=== PATIENT | female | born 1975 | race Caucasian/White ===

== ENCOUNTER → 2017-06-16 | Outpatient (CLI) | payer OTHER ==
[~2017-06-16] MED LIST: AMO500 PO; AMOX-559 PO; ASPI-1471 PO; ASPI-715 PO; ASPI-757 PO; ATR80PT PO; AZIT-9 PO; CAR3.125 PO; CEP500 PO; CEPH-13 PO; CEPH250C37 PO; CHOL400C10 PO; CLOP75TA43 PO; CYCL10TA29 PO; DICL100G39 TOP; DOC100 PO; FAM20 PO; FAMO20TA28 PO; FENO134C5 PO; FLUT16SP20 NS; GLY5 PO; HYDR-385 PO; HYDR-389 PO; HYDR-4309 PO; IBU600 PO; IBU800 PO; IBUP-1455 PO; IBUP600T22 PO; INUL2TAB7 PO; ISOS30TA54 PO; KET10 PO; LEVI SQ; LEVI SUBQ; LISI2.5T60 PO; LOR5 PO; LOR5/325 PO; METF-410 PO; METF-420 PO; METO25TA93 PO; MULT-1335 PO; NIA500 PO; NIAC100T35 PO; NICO1PAT45 TD; NIT4 SL; NO MEDS; NOVOLINRPT IJ; NPH,100V12 SQ; ONDA4TAB9 PO; PAR20 PO; PARO-46 PO; PENI-22 PO; PER PO; PHENA200 PO; PNEI IM; PRA20 PO; PRAS10TA PO; PRAS10TA4 PO; PRAV40TA77 PO; PRAV40TA78 PO; PRE5 PO; PREN-67 PO; PROM-100 PO; SIMV10TA98 PO; SITA100T9 PO; SULF-198 PO; TICA90TA PO; TRAM-420 PO; UNKNOWN ANTIBIOTIC
[2017-06-16 08:32] LABS: PLATELET COUNT, AUTOMATED 471 K/uL (150-450)
== END ==
LOC: LAB 08:10
PROVIDERS: ATTEND Nurse Practitioner Family
DX: E11.65 Type 2 diabetes mellitus with hyperglycemia (principal); E78.00 Pure hypercholesterolemia, unspecified
CPT/HCPCS: 36415; 82040; 82247; 82310; 82374; 82435; 82565; 82947; 83036; 84075; 84132; 84155; 84295; 84443; 84450; 84460; 84520; 85025

== ENCOUNTER 2017-07-29 14:38 | Emergency (ER) | payer OTHER ==
[~2017-07-29] VITALS: Ht 152.4 cm; Wt 88.5 kg
--- NOTE | 2017-07-29 14:45 | ER Report ---
History and Physical Time Seen By MD: 14:45 Hx. of Stated Complaint: has felt weak like her bs are low since 0800 HPI/ROS weak headache low grade fever today , type 2 dm , feels like sugars are low although they are high Allergies: Coded Allergies: No Known Drug Allergies (Unverified , 07/29/17) Home Meds Active Scripts Amoxicillin/Pot Clav 875-125 Mg Tab (AUGMENTIN 875-125 TABLET) 1 Each Tablet, 1 TAB PO Q12H, #20 TAB Prov:LAN DELGADO APRN-C 07/29/17 Famotidine (PEPCID) 20 Mg Tablet, 20 MG PO QDAY, #30 TAB Prov:ROSELIA CHRISTIAN MD 03/24/17 Clopidogrel Bisulfate (PLAVIX) 75 Mg Tablet, 1 TAB PO QDAY, #90 TAB 0 Refills Prov:LAN KELLY APRN DISK AND TAPE MACHINE TENDER-C 01/07/17 Reported Medications Nph, Human Insulin Isophane (NOVOLIN N) 100 Unit/1 Ml Vial, 30 UNIT SQ, VIAL 07/29/17 Aspirin (ASPIRIN) 325 Mg Tablet, 325 MG PO QDAY, TAB 07/29/17 Discontinued Reported Medications Aspirin (ASPIR 81) 81 Mg Tablet.dr, 1 TAB PO QDAY, TAB 07/19/15 Discontinued Scripts Metformin Hcl (METFORMIN HCL) 500 Mg Tablet, 2 TAB PO BID, #360 TAB 3 Refills Prov:LAN KELLY APRN DISK AND TAPE MACHINE TENDER-C 07/14/17 Metoprolol Tartrate (METOPROLOL TARTRATE) 25 Mg Tablet, 0.5 TAB PO BID, #90 TAB 3 Refills Prov:DAVON INGRAM MD 06/13/16 Atorvastatin (LIPITOR) 80 Mg Tab, 1 TAB PO QHS, #90 TAB 3 Refills Prov:DAVON INGRAM MD 06/13/16 Past Medical/Surgical History type2 diabetic , htn, , stents x 3 Hx Smoking: Yes (1 PPD) Smoking Status: Current: Every Day Smoker Exposure to Second Hand Smoke?: Yes Hx Substance Use Disorder: No Hx Alcohol Use: Yes (RARE) Constitutional Vital Sign - Last 24 Hours 07/29/17 07/29/17 07/29/17 07/29/17 14:44 14:51 15:00 15:08 Temp 98.0 Pulse 78 79 Resp 20 B/P (MAP) 139/81 (100) 139/81 124/83 (97) Pulse Ox 96 98 O2 Delivery Room Air 07/29/17 07/29/17 07/29/17 07/29/17 15:19 15:30 15:38 16:00 Pulse 77 B/P (MAP) 123/80 (94) 122/76 (91) 112/78 (89) Pulse Ox 96 07/29/17 07/29/17 07/29/17 07/29/17 16:05 16:30 16:35 17:28 Pulse 68 69 B/P (MAP) 120/71 (87) 127/79 (95) Pulse Ox 94 Intake and Output 07/29/17 07/29/17 07/30/17 15:00 23:00 07:00 Intake Total 400 ml Balance 400 ml Physical Exam alert mild distress, beatris gcs 15 eom intact, tm non reddened, sinus mild pain freddie maxiallary , neck supple no jvd, hrr, lungs cta, abd soft, bs x 4 duncan Medical Decision Making Data Points Result Diagram: 07/29/17 1457 07/29/17 1457 Laboratory Hematology Test 07/29/17 14:55 07/29/17 14:57 07/29/17 15:15 Whole Blood Glucose 241 mg/DL (75-110) Red Blood Count 5.67 M/uL (4.17-5.56) Mean Corpuscular Volume 80.6 fL (80.0-96.0) Mean Corpuscular Hemoglobin 27.0 pg (26.0-33.0) Mean Corpuscular Hemoglobin Concent 33.6 g/dL (32.0-36.0) Red Cell Distribution Width 14.6 % (11.5-14.5) Mean Platelet Volume 6.6 fL (7.2-11.1) Neutrophils (%) (Auto) 61.6 % (39.4-72.5) Lymphocytes (%) (Auto) 29.7 % (17.6-49.6) Monocytes (%) (Auto) 5.8 % (4.1-12.4) Eosinophils (%) (Auto) 1.8 % (0.4-6.7) Basophils (%) (Auto) 1.1 % (0.3-1.4) Nucleated RBC Relative Count (auto) 0.0 /100WBC Neutrophils # (Auto) 9.0 K/uL (2.0-7.4) Lymphocytes # (Auto) 4.3 K/uL (1.3-3.6) Monocytes # (Auto) 0.9 K/uL (0.3-1.0) Eosinophils # (Auto) 0.3 K/uL (0.0-0.5) Basophils # (Auto) 0.2 K/uL (0.0-0.1) Nucleated RBC Absolute Count (auto) 0.00 K/uL Sodium Level 132 mmol/L (137-145) Potassium Level 3.6 mmol/L (3.5-5.0) Chloride Level 100 mmol/L (98-107) Carbon Dioxide Level 22 mmol/L (22-31) Blood Urea Nitrogen 14 mg/dl (7-18) Creatinine 0.80 mg/dl (0.52-1.04) Glomerular Filtration Rate Calc > 60.0 Random Glucose 233 mg/dl (75-110) Calcium Level 9.0 mg/dl (8.4-10.2) Total Bilirubin 0.4 mg/dl (0.2-1.3) Aspartate Amino Transf (AST/SGOT) 22 U/L (0-35) Alanine Aminotransferase (ALT/SGPT) 42 U/L (0-56) Alkaline Phosphatase 134 U/L (0-126) Troponin I < 0.012 ng/ml C-Reactive Protein < 0.5 mg/dl (<1.0) Total Protein 7.5 gm/dl (6.3-8.2) Albumin 4.0 g/dl (3.5-5.0) Urine Color Yellow Urine Clarity Clear Urine pH 5.0 pH (4.8-9.5) Urine Specific [place] 1.010 Urine Protein Negative mg/dL (NEGATIVE) Urine Glucose (UA) 50 mg/dL (NEGATIVE) Urine Ketones Trace mg/dL (NEGATIVE) Urine Blood Large (NEGATIVE) Urine Nitrite Negative (NEGATIVE) Urine Bilirubin Negative (NEGATIVE) Urine Urobilinogen Negative mg/dL (0.2-1.9) Urine Leukocyte Esterase Negative (NEGATIVE) Urine RBC 9 /HPF (0-2/HPF) Urine WBC 1 /HPF (0-5/HPF) Urine Squamous Epithelial Cells Many /LPF (</=FEW) Urine Bacteria Few /HPF (NONE-FEW) Urine Mucus None /HPF (NONE-FEW) Chemistry Test 07/29/17 14:55 07/29/17 14:57 07/29/17 15:15 Whole Blood Glucose 241 mg/DL (75-110) White Blood Count 14.6 k/uL (4.5-11.0) Red Blood Count 5.67 M/uL (4.17-5.56) Hemoglobin 15.3 g/dL (12.0-16.0) Hematocrit 45.7 % (34.0-47.0) Mean Corpuscular Volume 80.6 fL (80.0-96.0) Mean Corpuscular Hemoglobin 27.0 pg (26.0-33.0) Mean Corpuscular Hemoglobin Concent 33.6 g/dL (32.0-36.0) Red Cell Distribution Width 14.6 % (11.5-14.5) Platelet Count 467 K/uL (150-450) Mean Platelet Volume 6.6 fL (7.2-11.1) Neutrophils (%) (Auto) 61.6 % (39.4-72.5) Lymphocytes (%) (Auto) 29.7 % (17.6-49.6) Monocytes (%) (Auto) 5.8 % (4.1-12.4) Eosinophils (%) (Auto) 1.8 % (0.4-6.7) Basophils (%) (Auto) 1.1 % (0.3-1.4) Nucleated RBC Relative Count (auto) 0.0 /100WBC Neutrophils # (Auto) 9.0 K/uL (2.0-7.4) Lymphocytes # (Auto) 4.3 K/uL (1.3-3.6) Monocytes # (Auto) 0.9 K/uL (0.3-1.0) Eosinophils # (Auto) 0.3 K/uL (0.0-0.5) Basophils # (Auto) 0.2 K/uL (0.0-0.1) Nucleated RBC Absolute Count (auto) 0.00 K/uL Glomerular Filtration Rate Calc > 60.0 Calcium Level 9.0 mg/dl (8.4-10.2) Total Bilirubin 0.4 mg/dl (0.2-1.3) Aspartate Amino Transf (AST/SGOT) 22 U/L (0-35) Alanine Aminotransferase (ALT/SGPT) 42 U/L (0-56) Alkaline Phosphatase 134 U/L (0-126) Troponin I < 0.012 ng/ml C-Reactive Protein < 0.5 mg/dl (<1.0) Total Protein 7.5 gm/dl (6.3-8.2) Albumin 4.0 g/dl (3.5-5.0) Urine Color Yellow Urine Clarity Clear Urine pH 5.0 pH (4.8-9.5) Urine Specific [place] 1.010 Urine Protein Negative mg/dL (NEGATIVE) Urine Glucose (UA) 50 mg/dL (NEGATIVE) Urine Ketones Trace mg/dL (NEGATIVE) Urine Blood Large (NEGATIVE) Urine Nitrite Negative (NEGATIVE) Urine Bilirubin Negative (NEGATIVE) Urine Urobilinogen Negative mg/dL (0.2-1.9) Urine Leukocyte Esterase Negative (NEGATIVE) Urine RBC 9 /HPF (0-2/HPF) Urine WBC 1 /HPF (0-5/HPF) Urine Squamous Epithelial Cells Many /LPF (</=FEW) Urine Bacteria Few /HPF (NONE-FEW) Urine Mucus None /HPF (NONE-FEW) Urinalysis Test 07/29/17 15:15 Urine Color Yellow Urine Clarity Clear Urine pH 5.0 pH (4.8-9.5) Urine Specific [place] 1.010 Urine Protein Negative mg/dL (NEGATIVE) Urine Glucose (UA) 50 mg/dL (NEGATIVE) Urine Ketones Trace mg/dL (NEGATIVE) Urine Blood Large (NEGATIVE) Urine Nitrite Negative (NEGATIVE) Urine Bilirubin Negative (NEGATIVE) Urine Urobilinogen Negative mg/dL (0.2-1.9) Urine Leukocyte Esterase Negative (NEGATIVE) Urine RBC 9 /HPF (0-2/HPF) Urine WBC 1 /HPF (0-5/HPF) Urine Squamous Epithelial Cells Many /LPF (</=FEW) Urine Bacteria Few /HPF (NONE-FEW) Urine Mucus None /HPF (NONE-FEW) ED Course/Re-evaluation ED Course Discussed this case with Dr. Bertha MACKEY ENT he will follow the patient up this week asked us to start her on Augmentin and have her seen closely in the clinic Re-evaluation script augmentin home w instructions Decision to Disposition Date: Jul 29, 2017 Decision to Disposition Time: 17:20 Depart Departure Latest Vital Signs Vital Signs Date Time Temp Pulse Resp B/P (MAP) Pulse Ox O2 Delivery O2 Flow Rate FiO2 07/29/17 17:28 127/79 (95) 07/29/17 16:35 69 07/29/17 16:05 94 07/29/17 14:51 98.0 20 Room Air Impression: Primary Impression: Sinusitis Condition: Improved Disposition: HOME OR SELF-CARE Referrals: CHENCHO MADERA MD 2 Days New Scripts Amoxicillin/Pot Clav 875-125 Mg Tab (AUGMENTIN 875-125 TABLET) 1 Each Tablet 1 TAB PO Q12H, #20 TAB Prov: LAN DELGADO 07/29/17 Patient Instructions: Sinusitis (ED) Additional Instructions: Call Dr. Chencho Madera for follow-up appointment with the office staff know that you were seen in the emergency room please take your CD of your CAT scan down with few for the appointment, take Augmentin 875 mg twice a day for 10 days, please take a probiotic at noon between antibiotic doses LAN DELGADO Jul 29, 2017 14:45
[2017-07-29] MEDS ORDERED: NS(*) 0.9% 1000 ML BAG 1,000 ML IV ONE (14:49)
[2017-07-29] MEDS ORDERED: ASPI-757 PO (15:05)
[2017-07-29] MEDS ORDERED: NPH,100V12 SQ (15:05)
--- NOTE | 2017-07-29 15:18 | EKG ---
FACILITY: [facility] - [place] PATIENT NAME: ANNMARIE STANLEY : [id number] MR: [id number] V: [id number] EXAM DATE: ORDERING PHYSICIAN: LAN DELGADO TECHNOLOGIST: TOMMY Britton Reason : ENDOCRINE Blood Pressure : / mmHG Vent. Rate : 080 BPM Atrial Rate : 080 BPM P-R Int : 140 ms QRS Dur : 084 ms QT Int : 386 ms P-R-T Axes : 070 065 062 degrees QTc Int : 445 ms Normal sinus rhythm Cannot rule out Anterior infarct , age undetermined vs lead placement No ST-T abnormalities When compared with ECG of 12-FEB-2017 19:46, Ant/sep T flattening has resolved Confirmed by CHAPO LUO ([id number]) on 07/29/2017 4:17:15 PM Referred By: SANDY Confirmed By:CHAPO LUO
[2017-07-29 15:21] LABS: PLATELET COUNT, AUTOMATED 467 K/uL (150-450)
--- NOTE | 2017-07-29 15:22 | RADIOLOGY IMAGING REPORT ---
FACILITY: [facility] PATIENT NAME: Nichelle Smith : 1975 MR: [id number] V: [id number] EXAM DATE: ORDERING PHYSICIAN: LAN DELGADO TECHNOLOGIST: Location: [facility] Patient: Nichelle Smith : 1975 Visit/Account:[id number] Date of Sevice: 07/29/2017 CHEST SINGLE AP Indication: Cough.. Comparison: 02/12/2017. Findings: Cardiomediastinal silhouette and pulmonary vessels within normal limits. There is no focal infiltrate or lobar consolidation. No pneumothorax or pleural effusion. No nodule. Upper abdomen is unremarkable. No acute bony abnormality. IMPRESSION: 1. No acute cardiopulmonary process. Report Dictated By: Rafael Hayes at 07/29/2017 3:17 PM Report E-Signed By: Rafael Hayes at 07/29/2017 3:18 PM WSN:[id number]
--- NOTE | 2017-07-29 16:39 | RADIOLOGY IMAGING REPORT ---
FACILITY: [facility] - [place] PATIENT NAME: Nichelle Smith : 1975 MR: [id number] V: [id number] EXAM DATE: ORDERING PHYSICIAN: LAN DELGADO TECHNOLOGIST: Location: [facility] [place] Patient: Nichelle Smith : 1975 Visit/Account:[id number] Date of Sevice: 07/29/2017 EXAMINATION: Head CT without intravenous contrast HISTORY: Sinus pain and dizziness TECHNIQUE: Contiguous axial images were obtained from the skull base to the vertex without intraven ous contrast. Sagittal and coronal reformatted images are also submitted. COMPARISON: None. FINDINGS: Brain volume: Normal. Ventricles: Normal. Acute ischemic changes: None. Hemorrhage: None. Masses / edema: None. Abbott-white: Negative. White matter: Normal. Vessels: Negative. Extra-axial: Negative. Calvarium / scalp: Negative. Skull base / visualized face: Negative. Visualized sinuses / orbits: There is an expansile soft tissue density process in the left maxillary sinus of mixed density with both hyper and hypodense elements. This process extends medially throug h the medial wall of the left maxillary sinus. There are two mucous retention cysts/polyps in the ri ght maxillary sinus. Air-fluid levels are not identified within the sinuses. The mastoid air cells appear well aerated IMPRESSION: Is expansile soft tissue density process of mixed density in the left maxillary sinus extending media lly through the medial wall the left maxillary sinus. This likely represents an appendix 10th of inf ectious/inflammatory process. Neoplastic process not entirely excluded ENT consultation recommended 2. Polyps versus mucous retention cysts in the right maxillary sinus Report Dictated By: Page Delaney MD at 07/29/2017 4:31 PM Report E-Signed By: Page Delaney MD at 07/29/2017 4:35 PM WSN:[id number]
[2017-07-29] MEDS ORDERED: AMOX-559 PO (17:23)
[2017-07-29 17:28] VITALS: BP 127/79
== END 2017-07-29 17:37 | disposition home or self-care (01) ==
LOC: ER 14:51
DX: J32.9 Chronic sinusitis, unspecified (principal); E11.9 Type 2 diabetes mellitus without complications
CPT/HCPCS: 36416; 70450; 71045; 81001; 82948; 84443; 84484; 85025; 85651; 86140; 93005; 96360; 96361; 99284; J7030; 82040; 82247; 82310; 82374; 82435; 82565; 82947; 84075; 84132; 84155; 84295; 84450; 84460; 84520

== ENCOUNTER → 2017-09-25 | Outpatient (CLI) | payer OTHER ==
[~2017-09-25] MED LIST changes: +ATOR-1 PO; +ATOR40TA24 PO; +FLUO-177 PO; +HUM100VI15 SQ; +OMEP-125 PO
[2017-09-25 06:46] LABS: PLATELET COUNT, AUTOMATED 430 K/uL (150-450)
== END ==
LOC: LAB 06:20
PROVIDERS: ATTEND Nurse Practitioner Family
DX: J32.9 Chronic sinusitis, unspecified (principal); I25.10 Atherosclerotic heart disease of native coronary artery without angina pectoris; E11.9 Type 2 diabetes mellitus without complications
CPT/HCPCS: 36415; 82040; 82247; 82310; 82374; 82435; 82565; 82947; 83036; 84075; 84132; 84155; 84295; 84450; 84460; 84520; 85025

== ENCOUNTER 2017-09-29 02:41 | Day surgery (SDC) | payer OTHER ==
[~2017-09-29] VITALS: Ht 152.4 cm; Wt 89.4 kg
[2017-09-29] MEDS ORDERED: ROCURONIUM BROM 10 MG/ML 5 ML ONE (02:42)
[2017-09-29] MEDS ORDERED: SUGAMMADEX SOD 200 MG/2 ML SDV ONE (02:42)
[2017-09-29] MEDS ORDERED: METOCLOPRAMIDE 10 MG/2 ML SDV ONE (02:42)
[2017-09-29 07:30] VITALS: BP 119/74
[2017-09-29] MEDS: NORMOSOL R SOLN(*) 1000 ML BAG 1,000 ML IV PRN ×2 (07:36→09:00)
[2017-09-29 07:37] LABS: PLATELET COUNT, AUTOMATED 470 K/uL (150-450)
[2017-09-29] MEDS ORDERED: FAMOTIDINE 20 MG TAB PO ONE (07:40)
[2017-09-29] MEDS ORDERED: FAMOTIDINE 20 MG/50 ML PREMIX IVPB ONE (07:40)
[2017-09-29] MEDS ORDERED: LIDOCAINE/SOD BICARB 8.4% SYR ID ONE (07:40)
[2017-09-29] MEDS ORDERED: MIDAZOLAM 2 MG/2 ML VIAL IVP PRN (07:40)
[2017-09-29] MEDS ORDERED: BACITRACIN OINT 15 GM TUBE TP ONE (07:41)
[2017-09-29] MEDS ORDERED: LIDO/EPI 1% MDV 1:100,000 20ML INFIL ONE (07:41)
[2017-09-29] MEDS ORDERED: OXYMETAZOLINE SPRAY 15 ML BTL ONE (07:41)
[2017-09-29] MEDS ORDERED: ceFAZolin(*) 2GM/D5W 50ML 50 ML IVPB ONE (07:55)
[2017-09-29] MEDS ORDERED: DEXAMETHASONE SOD 4 MG/ML VIAL ONE (08:12)
[2017-09-29] MEDS ORDERED: LIDOCAINE MPF 1% 5 ML VIAL ONE (08:12)
[2017-09-29] MEDS ORDERED: PROPOFOL EMUL(*) 10MG/ML 20 ML 20 ML ONE (08:12)
[2017-09-29] MEDS ORDERED: ONDANSETRON 4 MG/2 ML VIAL ONE (08:12)
[2017-09-29] MEDS ORDERED: fentaNYL CITR 100 MCG/2 ML AMP ONE (08:12)
[2017-09-29] MEDS ORDERED: SUCCINYLCHOL CHL 200MG/10ML VL ONE (08:12)
[2017-09-29] MEDS ORDERED: FLUC100T39 PO (09:09)
[2017-09-29] MEDS ORDERED: CEFU500T10 PO (09:10)
[2017-09-29] MEDS ORDERED: HYDR-4309 PO (09:11)
[2017-09-29] MEDS ORDERED: APAP/HYDROCODONE 325/5 TAB ONE (09:38)
[2017-09-29 09:45] VITALS: BP 82/62
[2017-09-29 09:48] VITALS: BP 95/68
[2017-09-29 09:51] VITALS: BP 94/59
--- NOTE | 2017-09-29 11:01 | OPERATIVE REPORT 1 ---
EVENT DATE: September 29, 2017 SURGEON: Chay Looney MD ANESTHESIOLOGIST: Miko Anderson MD ANESTHESIA: General endotracheal. PROCEDURE Left maxillary antrostomy. PREOPERATIVE DIAGNOSIS Chronic left maxillary sinusitis. POSTOPERATIVE DIAGNOSIS Chronic left maxillary sinusitis. INDICATIONS Please refer to the preoperative note. DESCRIPTION OF PROCEDURE The patient was positively identified in the preoperative area. Risks were again explained, including but not limited to bleeding, infection, injury to the orbit, vision changes, and those associated with anesthesia. She acknowledged understanding of those risks. I again reviewed her preoperative CT of the sinuses. This was remarkable for isolated opacification of the left maxillary sinus. She was then brought back to the operative suite, laid supine on the operative table, and anesthesia was administered. Once asleep, the patient was positioned and then prepped and draped in usual sterile fashion. I initially decongested the left nasal cavity by placing cottonoids containing Afrin solution. These were subsequently removed. A nasal endoscopy was performed. Approximately 1 mL of 1% lidocaine with epinephrine was then infiltrated into the lateral nasal wall. An uncinectomy was performed. Natural maxillary ostium was identified and widened with back biting forceps and the microdebrider blade. I encountered pus and fungal debris. This was suctioned. The sinus was then irrigated with normal saline solution. The patient was then turned to anesthesia for emergence. ESTIMATED BLOOD LOSS 10 mL. COMPLICATIONS No complications. MTDD
== END 2017-09-29 10:30 | disposition home or self-care (01) ==
LOC: OR 02:41
PROVIDERS: ATTEND Otolaryngology
DX: J32.0 Chronic maxillary sinusitis (principal); E78.5 Hyperlipidemia, unspecified
CPT/HCPCS: 31030; 36415; 36416; 81025; 82948; 85025; J0330; J1100; J2001; J2405; J2704; J2765; J3010; J3490; 82310; 82374; 82435; 82565; 82947; 84132; 84295; 84520; J0690

== ENCOUNTER → 2017-10-13 | Outpatient (CLI) | payer OTHER ==
[~2017-10-13] MED LIST changes: +CEFU500T10 PO; +FLUC100T39 PO; -METF-410 PO; +METF-411 PO; +METF-421 PO
== END ==
LOC: LAB 08:21
PROVIDERS: ATTEND Nurse Practitioner Family
DX: R10.13 Epigastric pain (principal)
CPT/HCPCS: 87338

== ENCOUNTER 2018-06-22 16:02 | Emergency (ER) | payer OTHER ==
[~2018-06-22 16:02] MED LIST changes: -HYDR-4309 PO; +HYDR-653 PO; -METF-411 PO; -METF-421 PO; +METF-450 PO; +METF-452 PO
--- NOTE | 2018-06-22 16:21 | ER Report ---
History and Physical Time Seen By MD: 16:21 HPI/ROS CHIEF COMPLAINT: Chest pain HISTORY OF PRESENT ILLNESS: This is a 43-year-old female presents to the emergency department for chest pain. Patient states that today she had left- sided chest pain, she states from left axillary into the sternum, she states this is different from her previous chest pains which goes from elbow to elbow. Patient states she was reluctant to come in however she decided to. Patient states that pain is intermittent, not constant. Patient has also been sweeping snow and using her left arm a little bit more recently. No nausea or vomiting. No shortness of breath. No fevers or chills. No diaphoresis. REVIEW OF SYSTEMS: Constitutional: No fever, no chills. Eyes: No discharge. ENT: No sore throat. Cardiovascular: As above. Respiratory: No cough, no shortness of breath. Gastrointestinal: No abdominal pain, no vomiting. Genitourinary: No hematuria. Musculoskeletal: No back pain. Skin: No rashes. Neurological: No headache. Allergies: Coded Allergies: No Known Drug Allergies (Unverified , 06/22/18) Home Meds Active Scripts Metformin Hcl (METFORMIN HCL) 500 Mg Tablet, 2 TAB PO BID, #360 TAB 1 Refill Prov:LAN KELLY APRN-C 10/06/17 Discontinued Reported Medications Hydrocodone Bit/Acetaminophen (NORCO 5-325 TABLET) 1 Each Tablet, 1 EACH PO Q6H PRN for PAIN, #10 TAB 09/29/17 Fluconazole (FLUCONAZOLE) 100 Mg Tablet, 100 MG PO QDAY, #7 09/29/17 Omeprazole (OMEPRAZOLE) 20 Mg Capsule.dr, 1 TAB PO DAILY, CAP 09/26/17 Aspirin (ASPIR 81) 81 Mg Tablet.dr, 81 MG PO HS, TAB 09/22/17 Discontinued Scripts Fluoxetine Hcl (FLUOXETINE HCL) 20 Mg Capsule, 1 CAP PO QDAY, #90 CAPSULE 1 Refill Prov:LAN KELLY APRN-C 11/19/17 Atorvastatin Calcium (ATORVASTATIN CALCIUM) 80 Mg Tablet, 1 TAB PO QDAY, #90 TAB Prov:LAN KELLY APRN-C 10/07/17 Metoprolol Tartrate (METOPROLOL TARTRATE) 25 Mg Tablet, 0.5 TAB PO BID, #90 TAB 1 Refill Prov:LAN KELLY AMAN HANKINS-Chad 10/06/17 Hum Insulin Nph/Reg Insulin Hm (NOVOLIN 70-30 100 UNIT/ML VIAL) 100 Unit/1 Ml Vial, 30 UNIT SQ BID, #2 VIAL 5 Refills Prov:LAN KELLY APRN PIECE HAND-C 09/05/17 Past Medical/Surgical History The patient has a past medical and surgical history of myocardial infarction, stents, hypertension, hypercholesterolemia, smokes, has a chronic cough, kidney stones, hand and foot fracture, type II diabetic, on metformin, enlarged thyroid, cholecystectomy, depression, suicide attempt. Reviewed Nurses Notes: Yes Hx Smoking: Yes (1 PPD X 30 YRS) Smoking Status: Current: Every Day Smoker Exposure to Second Hand Smoke?: Yes Hx Substance Use Disorder: No Hx Alcohol Use: Yes (RARE) Constitutional Vital Sign - Last 24 Hours 06/22/18 06/22/18 06/22/18 06/22/18 16:22 16:23 16:30 16:32 Temp 98.8 Pulse 96 95 Resp 16 13 B/P (MAP) 136/93 136/93 (107) 114/88 (97) Pulse Ox 95 96 O2 Delivery Room Air 06/22/18 06/22/18 06/22/18 06/22/18 17:00 17:02 17:30 17:32 Pulse 91 85 Resp 29 21 B/P (MAP) 129/119 (122) 114/78 (90) Pulse Ox 94 94 Physical Exam General Appearance: The patient is alert, has no immediate need for airway protection and no signs of toxicity. Eyes: Pupils equal and round no pallor or injection. ENT, Mouth: Mucous membranes are moist. Respiratory: There are no retractions, lungs are clear to auscultation. Cardiovascular: Regular rate and rhythm, no murmurs, clicks or rubs. Gastrointestinal: Abdomen is soft and non tender, no masses, bowel sounds normal. Neurological: Alert and oriented 4. Moving all extremities. Following all commands. No focal neuro deficits. Skin: Warm and dry, no rashes. Musculoskeletal: Neck is supple non tender. Extremities are nontender, nonswollen and have full range of motion. DIFFERENTIAL DIAGNOSIS: After history and physical exam differential diagnosis was considered for chest pain including but not limited to myocardial ischemia, pericarditis pulmonary embolus, chest wall pain, pleural inflammation and pulmonary infectious causes. Medical Decision Making Data Points Result Diagram: 06/22/18 1635 06/22/18 1635 Laboratory Hematology Test 06/22/18 16:35 Red Blood Count 6.04 M/uL (4.17-5.56) Mean Corpuscular Volume 81.3 fL (80.0-96.0) Mean Corpuscular Hemoglobin 27.9 pg (26.0-33.0) Mean Corpuscular Hemoglobin Concent 34.3 g/dL (32.0-36.0) Red Cell Distribution Width 13.8 % (11.5-14.5) Mean Platelet Volume 6.9 fL (7.2-11.1) Neutrophils (%) (Auto) 64.3 % (39.4-72.5) Lymphocytes (%) (Auto) 26.9 % (17.6-49.6) Monocytes (%) (Auto) 6.3 % (4.1-12.4) Eosinophils (%) (Auto) 1.5 % (0.4-6.7) Basophils (%) (Auto) 1.0 % (0.3-1.4) Nucleated RBC Relative Count (auto) 0.0 /100WBC Neutrophils # (Auto) 9.7 K/uL (2.0-7.4) Lymphocytes # (Auto) 4.0 K/uL (1.3-3.6) Monocytes # (Auto) 1.0 K/uL (0.3-1.0) Eosinophils # (Auto) 0.2 K/uL (0.0-0.5) Basophils # (Auto) 0.1 K/uL (0.0-0.1) Nucleated RBC Absolute Count (auto) 0.01 K/uL Sodium Level 132 mmol/L (137-145) Potassium Level 4.5 mmol/L (3.5-5.0) Chloride Level 104 mmol/L (98-107) Carbon Dioxide Level 22 mmol/L (22-31) Blood Urea Nitrogen 19 mg/dl (7-18) Creatinine 0.80 mg/dl (0.52-1.04) Glomerular Filtration Rate Calc > 60.0 Random Glucose 382 mg/dl (75-110) Calcium Level 9.0 mg/dl (8.4-10.2) Total Bilirubin 0.2 mg/dl (0.2-1.3) Aspartate Amino Transf (AST/SGOT) 14 U/L (0-35) Alanine Aminotransferase (ALT/SGPT) 16 U/L (0-56) Alkaline Phosphatase 134 U/L (0-126) Troponin I < 0.012 ng/ml Total Protein 7.3 g/dl (6.3-8.2) Albumin 3.9 g/dl (3.5-5.0) Chemistry Test 06/22/18 16:35 White Blood Count 15.0 k/uL (4.5-11.0) Red Blood Count 6.04 M/uL (4.17-5.56) Hemoglobin 16.8 g/dL (12.0-16.0) Hematocrit 49.1 % (34.0-47.0) Mean Corpuscular Volume 81.3 fL (80.0-96.0) Mean Corpuscular Hemoglobin 27.9 pg (26.0-33.0) Mean Corpuscular Hemoglobin Concent 34.3 g/dL (32.0-36.0) Red Cell Distribution Width 13.8 % (11.5-14.5) Platelet Count 448 K/uL (150-450) Mean Platelet Volume 6.9 fL (7.2-11.1) Neutrophils (%) (Auto) 64.3 % (39.4-72.5) Lymphocytes (%) (Auto) 26.9 % (17.6-49.6) Monocytes (%) (Auto) 6.3 % (4.1-12.4) Eosinophils (%) (Auto) 1.5 % (0.4-6.7) Basophils (%) (Auto) 1.0 % (0.3-1.4) Nucleated RBC Relative Count (auto) 0.0 /100WBC Neutrophils # (Auto) 9.7 K/uL (2.0-7.4) Lymphocytes # (Auto) 4.0 K/uL (1.3-3.6) Monocytes # (Auto) 1.0 K/uL (0.3-1.0) Eosinophils # (Auto) 0.2 K/uL (0.0-0.5) Basophils # (Auto) 0.1 K/uL (0.0-0.1) Nucleated RBC Absolute Count (auto) 0.01 K/uL Glomerular Filtration Rate Calc > 60.0 Calcium Level 9.0 mg/dl (8.4-10.2) Total Bilirubin 0.2 mg/dl (0.2-1.3) Aspartate Amino Transf (AST/SGOT) 14 U/L (0-35) Alanine Aminotransferase (ALT/SGPT) 16 U/L (0-56) Alkaline Phosphatase 134 U/L (0-126) Troponin I < 0.012 ng/ml Total Protein 7.3 g/dl (6.3-8.2) Albumin 3.9 g/dl (3.5-5.0) EKG/Imaging EKG Interpretation 12 lead EKG: Time of EKG 1622. Rhythm: Normal sinus rhythm, ventricular rate 92 bpm. [place]: normal QRS: Low voltage. ST segments: No ST depression or elevation identified. 12 lead EKG: Repeat EKG 1828 Rhythm: Normal sinus rhythm, ventricular rate 83 BPM. [place]: normal QRS: normal ST segments: No ST depression or elevation identified. No changes from the previous EKG. Imaging Location: [facility] [place] Patient: Nichelle Smith : 1975 Visit/Account:[id number] Date of Sevice: 06/22/2018 Exam type: CHEST PA LAT History: Chest pain mostly on the right side Comparison: July 29, 2017. Findings: The lungs are free of acute effusions, infiltrates or edema. There is no evidence of a pneumothorax or pneumomediastinum. There are mild spondylotic changes of the thoracic spine. Surgical clips are present right upper quadrant of abdomen. IMPRESSION: 1. No acute cardiopulmonary process is seen Report Dictated By: Page Delaney MD at 06/22/2018 5:12 PM Report E-Signed By: Page Delaney MD at 06/22/2018 5:13 PM WSN:[email or web address] ED Course/Re-evaluation Clinical Indication for ER IV: IV Access ED Course The patient was admitted to room. A history and physical were obtained. Differen tial diagnoses were considered. An IV was started. A 1 L normal saline bolus was given. 324 mg chewable aspirin. A CBC, CMP, troponin were obtained. A two-view chest x-ray was negative for any acute cardiopulmonary process.CBC showing white count of 15,000, H&H 16.8 and 49.1, no left shift, patient states that the white count is normal for her, based on historical data this is accurate. Chemistry showing sodium 132, glucose 382. EKG showing normal sinus rhythm, ventricular rate 92 bpm. I reviewed the results with the patient, as the patient's pain is intermittent, I did not give her nitroglycerin, the patient declined other medications. I did tell her the initial troponin was negative, I had ordered a repeat troponin, she stated that she would like to go home, did not want to wait for the repeat troponin, she was willing to repeat the EKG which showed a normal sinus rhythm, with a rate of 83 BPM. No changes from the previous EKG. I did explain to patient that without the follow-up troponin I'm unable to fully evaluate this is cardiac related. Patient states she would still like to go home. Patient did sign out AMA. I did tell her that she needs to follow-up with her primary care provider this week for reevaluation, return to ER immediately for any other concerns or worsening symptoms, she expressed understanding and was discharged home. The patient did sign the AMA paperwork. 06/22/2018 6:17:58 pm the patient has elected to leave against medical advice, has also elected not to take any medications at this time. Decision to Disposition Date: Jun 22, 2018 Decision to Disposition Time: 18:17 Depart Departure Latest Vital Signs Vital Signs Date Time Temp Pulse Resp B/P (MAP) Pulse Ox O2 Delivery O2 Flow Rate FiO2 06/22/18 17:32 85 21 94 06/22/18 17:30 114/78 (90) 06/22/18 16:22 98.8 Room Air Impression: Primary Impression: Chest pain of unknown etiology Additional Impression: Left against medical advice Condition: Condition Unchanged Disposition: AGAINST MED ADV / DISCONT CARE Referrals: LAN KELLY APRN-Chad (PCP) 2 Days Patient Instructions: Against Medical Advice (DC), Chest Pain (ED) Additional Instructions: Although you have elected to leave against medical advice, you can return at any time. Please follow up with Abel Bella within 2 days for reevaluation. Drink plenty of water. Take plenty of rest. Return to the ER for any concerns or worsening symptoms. Problem Qualifiers CARLINE GUTIERREZ PIECE HAND-BC Jun 22, 2018 16:21
[2018-06-22] MEDS ORDERED: ASPIRIN 81 MG CHEW PO ONE (16:25)
[2018-06-22] MEDS ORDERED: NS(*) 0.9% 1000 ML BAG 1,000 ML IV ONE (16:25)
[2018-06-22 16:52] LABS: PLATELET COUNT, AUTOMATED 448 K/uL (150-450)
--- NOTE | 2018-06-22 17:16 | RADIOLOGY IMAGING REPORT ---
FACILITY: [facility] - [place] PATIENT NAME: Nichelle Smith : 1975 MR: [id number] V: [id number] EXAM DATE: ORDERING PHYSICIAN: CARLINE GUTIERREZ TECHNOLOGIST: [place] [facility] [place] : 1975 Visit/Account:[id number] Date of Sevice: 06/22/2018 Exam type: CHEST PA LAT History: Chest pain mostly on the right side Comparison: July 29, 2017. Findings: The lungs are free of acute effusions, infiltrates or edema. There is no evidence of a pneumothorax or pneumomediastinum. There are mild spondylotic changes of the thoracic spine. Surgical clips are present right upper quadrant of abdomen. IMPRESSION: 1. No acute cardiopulmonary process is seen Report Dictated By: Page Delaney MD at 06/22/2018 5:12 PM Report E-Signed By: Page Delaney MD at 06/22/2018 5:13 PM WSN:[id number]
--- NOTE | 2018-06-22 17:26 | EKG ---
FACILITY: [facility] PATIENT NAME: ANNMARIE STANLEY : [id number] MR: [id number] V: [id number] EXAM DATE: ORDERING PHYSICIAN: CARLINE GUTIERREZ TECHNOLOGIST: Test Reason : chest pain Blood Pressure : / mmHG Vent. Rate : 092 BPM Atrial Rate : 092 BPM P-R Int : 134 ms QRS Dur : 078 ms QT Int : 350 ms P-R-T Axes : 056 003 026 degrees QTc Int : 432 ms Normal sinus rhythm Low voltage QRS Borderline ECG When compared with ECG of 29-JUL-2017 15:01, Questionable change in QRS axis Confirmed by LIS AIKEN ([id number]) on 06/23/2018 6:30:34 AM Referred By: Confirmed By:LIS AIKEN
[2018-06-22 17:30] VITALS: BP 114/78
--- NOTE | 2018-06-22 18:37 | EKG ---
[place] [facility] [place] NAME: ANNMARIE STANLEY : [id number] MR: [id number] V: [id number] EXAM DATE: ORDERING PHYSICIAN: CARLINE GUTIERREZ TECHNOLOGIST: ANGELA Britton Reason : CP Blood Pressure : / mmHG Vent. Rate : 083 BPM Atrial Rate : 083 BPM P-R Int : 136 ms QRS Dur : 080 ms QT Int : 384 ms P-R-T Axes : 055 006 023 degrees QTc Int : 451 ms Normal sinus rhythm Low voltage QRS Borderline ECG When compared with ECG of 22-JUN-2018 16:22, No significant change was found Confirmed by LIS AIKEN ([id number]) on 06/23/2018 6:30:52 AM Referred By: DENY Confirmed By:LIS AIKEN
== END 2018-06-22 18:43 | disposition left against medical advice (07) ==
LOC: ER 16:25
DX: R07.9 Chest pain, unspecified (principal)
CPT/HCPCS: 71046; 84484; 85025; 93005; 96360; 99284; J7030; 82040; 82247; 82310; 82374; 82435; 82565; 82947; 84075; 84132; 84155; 84295; 84450; 84460; 84520

== ENCOUNTER 2018-07-28 03:48 | Emergency (ER) | payer OTHER ==
--- NOTE | 2018-07-28 03:51 | ER Report ---
History and Physical Time Seen By MD: 03:51 HPI/ROS CHIEF COMPLAINT: Left leg pain HISTORY OF PRESENT ILLNESS: 43-year-old female who was seeing a chiropractor presents with pain in her left leg. Patient notes the chiropractor was working on her lower back and her neck. She developed pain late last evening. She took ibuprofen with some improvement, but the pain is still quite worse. She's been unable to sleep and presents to the ER at 4 AM. Patient notes no incontinence or saddle anesthesia. She denies a history of back problems. Allergies: Coded Allergies: No Known Drug Allergies (Unverified , 07/28/18) Home Meds Active Scripts Tramadol Hcl (TRAMADOL HCL) 50 Mg Tablet, 1 TAB PO Q4-6H PRN for PAIN, #12 MG TAKE ONE TABLET BY MOUTH EVERY FOUR TO SIX HOURS NEEDED Prov:KIERRA GUTIÉRREZ DO 07/28/18 Metformin Hcl (METFORMIN HCL) 500 Mg Tablet, 2 TAB PO BID, #360 TAB 1 Refill Prov:LAN KELLY APRN FORENSIC SCIENCE EXAMINER-C 10/06/17 Past Medical/Surgical History The patient has a past medical and surgical history of myocardial infarction, stents, hypertension, hypercholesterolemia, smokes, has a chronic cough, kidney stones, hand and foot fracture, type II diabetic, on metformin, enlarged thyroid, cholecystectomy, depression, suicide attempt. Reviewed Nurses Notes: Yes Old Medical Records Reviewed: Yes Hx Smoking: Yes (1 PPD X 30 YRS) Smoking Status: Current: Every Day Smoker Exposure to Second Hand Smoke?: Yes Hx Substance Use Disorder: Yes Hx Alcohol Use: Yes (RARE) Constitutional Vital Sign - Last 24 Hours 07/28/18 03:53 Temp 98.2 Pulse 109 Resp 19 B/P (MAP) 142/95 Pulse Ox 94 O2 Delivery Room Air Physical Exam General appearance: Alert no distress. Vital signs stable, afebrile Respiratory: Chest is non tender, lungs are clear to auscultation. Cardiac: Regular rate and rhythm Back: Outpatient of the lumbar region reveals no tenderness over the midline, no tenderness over the paraspinous musculature, no tenderness over the SI joints or the sciatic nerve courses. Extremities: The lower extremities are nontender. There is no reproducible pain with manipulation of the joints. There is a negative straight leg raise bilaterally. DIFFERENTIAL DIAGNOSIS: After history and physical exam differential diagnosis was considered for sprain, strain, fracture, dislocation, contusion, neuropathy, radiculopathy, pinched nerve Medical Decision Making ED Course/Re-evaluation ED Course Patient was admitted to an examination room. H&P was done. The differential diagnoses was considered. Patient with severe left leg pain, unresponsive to ibuprofen. Patient has a diabetic neuropathy would be in the differential. Jenn cat's been seeing a chiropractor and I suspect manipulation has injured a nerve in her back. She has radicular pain distribution. However, there is no reproducible pain on palpation of the course of the nerve or in her leg. Patient advised to continue on ibuprofen 600 mg 3 times daily. She be given tramadol for temporary pain relief. She is advised to follow-up with her chiro practor and her primary care physician if unimproved Decision to Disposition Date: Jul 28, 2018 Decision to Disposition Time: 04:05 Depart Departure Latest Vital Signs Vital Signs Date Time Temp Pulse Resp B/P (MAP) Pulse Ox O2 Delivery O2 Flow Rate FiO2 07/28/18 03:53 98.2 109 19 142/95 94 Room Air Impression: Primary Impression: Left leg pain Condition: Improved Disposition: HOME OR SELF-CARE New Scripts Tramadol Hcl (TRAMADOL HCL) 50 Mg Tablet 1 TAB PO Q4-6H PRN for PAIN, #12 MG TAKE ONE TABLET BY MOUTH EVERY FOUR TO SIX HOURS NEEDED Prov: KIERRA GUTIÉRREZ DO 07/28/18 Patient Instructions: Leg Pain (ED), Lumbar Radiculopathy (ED) Additional Instructions: Continue ibuprofen 200 mg 3-4 tablets 3 times a day with food Apply heating pad to the affected area All of with your primary care if unimproved in 2-4 days KIERRA GUTIÉRREZ DO Jul 28, 2018 03:51
[2018-07-28 03:53] VITALS: BP 142/95
[2018-07-28] MEDS ORDERED: TRAM-420 PO (04:11)
[2018-07-28] MEDS ORDERED: traMADol 50 MG TAB TH 2 TAB/BOTTLE PO ONE (04:15)
== END 2018-07-28 04:26 | disposition home or self-care (01) ==
LOC: ER 04:13
DX: M79.605 Pain in left leg (principal)
CPT/HCPCS: 99283; C9399

== ENCOUNTER → 2018-08-17 | Outpatient (CLI) | payer OTHER ==
[2018-08-17 09:49] LABS: PLATELET COUNT, AUTOMATED 360 K/uL (150-450)
[2018-08-17 10:43] LABS: LDL CHOLESTEROL 70 mg/dl
== END ==
LOC: LAB 09:20
PROVIDERS: ATTEND Nurse Practitioner
DX: Z13.220 Encounter for screening for lipoid disorders (principal); Z12.39 Encounter for other screening for malignant neoplasm of breast; E11.40 Type 2 diabetes mellitus with diabetic neuropathy, unspecified
CPT/HCPCS: 36415; 82040; 82247; 82310; 82374; 82435; 82465; 82565; 82947; 83718; 84075; 84132; 84155; 84295; 84443; 84450; 84460; 84478; 84520; 84550; 85025